=== PATIENT | male | born 1995 | race Caucasian/White ===

== ENCOUNTER 2022-05-18 11:12 | Emergency (ER) | payer OTHER ==
[2022-05-18] MEDS ORDERED: Bacitracin Oint 1 GM U/D Packet TOP ONE (12:05)
== END 2022-05-18 12:20 | disposition home or self-care (01) ==
LOC: JP.ED 11:12
DX: S01.21XA Laceration without foreign body of nose, initial encounter (principal); W54.0XXA Bitten by dog, initial encounter; Y92.89 Other specified places as the place of occurrence of the external cause
CPT/HCPCS: 12013; 99283